=== PATIENT | female | born 1980 | race Caucasian/White ===

== ENCOUNTER → 2023-12-07 09:25 | Outpatient (REF) | payer BC, SELFPAY | LOC: RAD 09:25 | PROVIDERS: ATTENDING PHYSICIAN Physician Assistant; FAMILY PHYSICIAN Nurse Practitioner Family | DX: E04.9 Nontoxic goiter, unspecified (principal) | CPT/HCPCS: 76536 ==

== ENCOUNTER → 2024-01-14 06:27 | Day surgery (SDC) | payer OTHER, SELFPAY | LOC: GI 06:27 | PROVIDERS: ATTENDING PHYSICIAN Internal Medicine Gastroenterology | DX: R10.12 Left upper quadrant pain (principal); R19.7 Diarrhea, unspecified; K64.9 Unspecified hemorrhoids; K63.5 Polyp of colon; R13.10 Dysphagia, unspecified; K44.9 Diaphragmatic hernia without obstruction or gangrene; K31.7 Polyp of stomach and duodenum; K29.50 Unspecified chronic gastritis without bleeding | CPT/HCPCS: 45385; 45380; 43239; 88305; 88342 ==

== ENCOUNTER 2024-10-22 10:23 | Emergency (ER) | payer OTHER, SELFPAY ==
[2024-10-22 10:41] VITALS: BP 129/82
[2024-10-22 11:03] LABS: % Basophils 1.2 % (0-2); % Immature Granulocytes 0.5 % (0-0.5); % Lymphocytes 26.7 % (20.5-51.1); % Monocytes 8.2 % (1.7-9.3); % Neutrophils 60.4 % (42.2-75.2); Absolute Basophils 0.1 10^3/uL (0-0.2); Absolute Eosinophils 0.2 10^3/uL (0-0.7); Absolute Lymphocytes 1.5 10^3/uL (1.2-3.4); Absolute Monocytes 0.5 10^3/uL (0.1-0.6); Absolute Neutrophils 3.5 10^3/uL (1.4-6.5); Hematocrit 39.1 % (37.0-47.0); Hemoglobin 13.2 g/dL (12.0-16.0); Mean Corp Hgb Conc. 33.8 g/dL (33.0-37.0); Mean Corpuscular Hgb 27.4 pg (27.0-31.0); Mean Corpuscular Volume 81.1 fL (81.0-99.0); Mean Platelet Volume 10.9 fL (7.4-10.4); Nucleated Red Blood Cells % 0 %; Platelet Count 243 10^3/uL (130-400); Red Blood Cell Count 4.82 10^6/uL (4.20-5.40); Red Cell Dist. Width 12.9 % (11.5-14.5); White Blood Cell Count 5.8 10^3/uL (4.8-10.8)
[2024-10-22 11:18] LABS: ALT (SGPT) 28 U/L (0-35); AST (SGOT) 30 U/L (14-36); Albumin 4.5 g/dl (3.5-5.0); Alkaline Phosphatase 81 U/L (38-126); Blood Urea Nitrogen 12 mg/dl (7-17); Calcium 9.6 mg/dl (8.4-10.2); Carbon Dioxide 25 mmol/L (22-30); Chloride 104 mmol/L (98-107); Glucose 106 mg/dl (70-99); Potassium 3.9 mmol/L (3.5-5.1); Sodium 139 mmol/L (135-145); Total Bilirubin 0.3 mg/dl (0.2-1.3); Total Protein 7.7 g/dl (6.3-8.2); eGFR > 60.00
[2024-10-22 11:19] LABS: HCG, Serum Qualitative Screen Negative
[2024-10-22 11:53] VITALS: BP 106/70
[2024-10-22 12:00] VITALS: BP 110/73
--- NOTE | 2024-10-22 12:14 | ED.GENMED ---
History of Present Illness
General
Chief Complaint: Dizziness
Source: patient
Time Seen by Provider: 10/22/24 11:56
History of Present Illness
History of Present Illness:
This patient is a 44-year-old female who states that last night she noted palpitations associated with an elevated heart rate in the 130s. She thought it might be related to overstimulation and anxiety given that she was with lots of family last
night. It resolved in a few hours and she went to bed. When she woke up this morning she again noted palpitations associated with feeling 'off and dizzy. She says the dizziness was not spinning but she did describe it is like feeling 'motion
sick', 'not lightheaded', but rather dizzy in her head. She performed the Stella maneuver on herself and ever since then she has had intractable nonbloody vomiting. She describes feeling incredibly nauseous now. She still has a feeling of
dizziness and is worse when she moves her head to the side. She also has a moderate headache. She denies numbness, weakness, change in vision, change in speech, recent trauma.
Past History
Past History
ED Past Medical History: GERD (Gastritis), Psychiatric and Other (Hypothyroidism)
ED Past Surgical History: None
Social History
Tobacco: Non-smoker
Alcohol: None
Drug: None
Living: other (With partner)
Employment: Employed
Family History
Family History: CAD and Other (CAD, stroke)
Phy Exam
Physical Exam
Physical Exam:
GENERAL: Alert , appears very nauseous, vomit bag in front of her
EYE: pupils equal and reactive, no nystagmus noted, EOMI, no objective photophobia
NECK: Supple, no significant adenopathy.
ENT: o/p clr, mmm.
CARDIAC: Regular rate and rhythm .
LUNGS: Clear breath sounds bilaterally, no acute respiratory distress, no wheezes/rales/rhonchi
ABDOMEN: Soft, without focal tenderness, no r/g, no cvat
NEUROLOGICAL: Alert and oriented, no focal neuro deficits, [id number] normal, motor 5 out of 5, sensory intact, cranial nerves II through XII intact
SKIN: Warm and dry, skin intact.
MUSCULOSKELETAL: No edema, well perfused.
PSYCH: Normal and appropriate interaction.
Course
Orders/Labs/Results
Orders:
Orders
10/22/24 10:33
EKG [Electrocardiogram (*1)] Urgent
Reason for Study: Palpitations
10/22/24 10:34
EKG- Treatment ONCE
10/22/24 10:44
Test Result ONCE
10/22/24 10:53
Complete Blood Count/With Diff Urgent
Comprehensive Metabolic Panel Urgent
HCG, Serum Qualitative Screen Urgent
TSH Urgent
Comment: TSH ADDED ON BY FLOOR NOON 10-22-24
10/22/24 11:55
Add On- LAB Urgent
Tests Added?: TSH
10/22/24 12:18
Metoclopramide [Reglan] 10 mg IV NOW STA
10/22/24 13:32
CT Head W/o Iv Contrast Urgent
Comment:
Reason For Exam: DIZZY
Abnormal Lab Results
10/22/24
10:53
MPV 10.9 H fL
(7.4-10.4)
Glucose 106 H mg/dl
(70-99)
TSH 0.43 L uIU/ml
(0.47-4.68)
10/22/24 10:53
10/22/24 10:53
Vital Signs
Initial and Last Documented VS:
Initial Vital Signs
Temp Pulse Resp BP Pulse Ox
98 F 82 18 129/82 99
10/22/24 10:41 10/22/24 10:41 10/22/24 10:41 10/22/24 10:41 10/22/24 10:41
Last Documented Vital Signs
Temp Pulse Resp BP Pulse Ox
98 F 78 12 110/73 95
10/22/24 10:41 10/22/24 12:45 10/22/24 14:05 10/22/24 12:00 10/22/24 12:45
*Critical Care Note
Total Time (30-74mins, 75-104mins- exclusive of procedures): Not Applicable
Update Note
Update Note:
Patient presents to the Emergency Department with ___dizziness and nausea
Number and Complexity of Problems Addressed at the Encounter
� Chronic conditions affecting care:
� Acute Exacerbation and/or Progression of Chronic Illness:
� Differential Diagnosis includes: But not limited to vestibular neuritis, otolith, central vertigo, migraine, etc.
Amount and/or Complexity of Data to be Reviewed and Analyzed
� I performed an independent evaluation of and my interpretation is:
EKG: Read by me, normal sinus rate, normal rhythm, normal axis, no acute ischemia
CT:read by isabel abad
Xrays:
Laboratory Studies:generally unremarkable
Other:
� Review of other/old records reveals:
� Clinical information was obtained by an independent historian:
� Prescriptions/Medications Considered but not given:
� Further testing considered but not performed:
Risk of Complications and/or Morbidity or Mortality of Patient Management
� Social determinants of health affecting care:
� Discussion with other providers (PCP, Hospitalists, Consultants, etc):
� Escalation of care including admission/observation vs risk of discharge considered:323pm Repeat assessment, pt sitting upright, smiling, sxs fully resolved, walked to br without difficulty. Suspect peripheral vertigo as cause
of sxs, doubt dissection/cva, etc given lack of focal findings/severe neck or headache etc. She did have a recent URI, which may be c/w bestib neuritis. D/w pt import of f/u and reasons tor monica.
ED Attending Note
-
Portions of this chart may have been created with voice recognition software.� Occasional wrong word or��sound alike� substitutions may have occurred due to the inherent limitations of voice recognition software.
Discharge Plan
Departure
Patient Disposition: Home (Routine Discharge)
Date of Disposition: 10/22/24
Time of Disposition: 15:43
Patient with high blood pressure during this ER visit?: Yes
Condition: Good
Discharge Problem:
Vertigo
Instructions: Vertigo (a Type of Dizziness) (DC), BLOOD PRESSURE
Prescriptions:
New
meclizine [Antivert] 25 mg tablet,chewable
25 mg PO Q8HPRN PRN (Reason: nausea or vertigo) Qty: 11 0RF
No Action
methylprednisolone [Medrol (Yovani)] 4 MG tablets,dose pack
4 tab PO . DIRECT Qty: 1 0RF
diazepam [Valium] 5 MG tablet
2.5 mg PO TID PRN (Reason: Pain, spasm) Qty: 10 0RF
ondansetron [Zofran ODT] 8 MG tablet,disintegrating
8 mg PO TID PRN (Reason: nausea/vomiting) Qty: 20 0RF
oxycodone 5 MG tablet
5 mg PO Q4HPRN PRN (Reason: pain) Qty: 20 0RF
benzonatate 200 mg capsule
200 mg PO TID PRN (Reason: cough) Qty: 6 0RF
albuterol sulfate [ProAir HFA] 90 mcg/actuation HFA aerosol inhaler
2 inh inhalation Q4H PRN (Reason: shortness of breath or wheezing) Qty: 6.7 0RF
Rx Instructions:
2 puffs every 4-6 hours as needed
Referrals:
Brittany Garcia PA-C [Family Provider] - Follow up in 2-3 days
Activity Restrictions/Additional Instructions:
YOUR MEDICATION IS AT [facility], [address] IN [place]. IF YOU DEVELOP RECURRENT/PERSISTENT DIZZINESS, VOMITING, NAUSEA, ANY NUMBNESS, CHANGE IN VISION, CHEST PAIN, TROUBLE BREATHING, WEAKNESS, OR OTHER WORRISOME SIGNS, GO TO THE ER
IMMEDIATELY!
Interventions
Interventions:
*Risk Screen - Suicide Last Done: 10/22/24 12:57
*General Assessment Last Done: 10/22/24 12:57
*Neglect/Abuse Screening Last Done: 10/22/24 12:57
ED- Fall Risk Assessment Last Done: 10/22/24 12:57
*ED COVID-19 Vaccine History Last Done: 10/22/24 12:57
ED- Neurological Assessment Last Done: 10/22/24 12:57
ED- Cardiac Assessment Last Done: 10/22/24 12:57
ED Swallowing Screen Last Done: 10/22/24 12:59
Discharge Date and Time
Print Language: BURUNDIAN
[2024-10-22] MEDS: REGLAN 10 MG IV (12:30)
[2024-10-22 12:43] LABS: TSH 0.43 uIU/ml (0.47-4.68)
[2024-10-22 12:57] VITALS: BMI 21.5
== END 2024-10-22 15:47 | disposition home or self-care (01) ==
LOC: EMR 10:23
PROVIDERS: Emergency Medicine; EMERGENCY PHYSICIAN Emergency Medicine; FAMILY PHYSICIAN Physician Assistant Medical
DX: R42 Dizziness and giddiness (principal); R00.2 Palpitations; R11.2 Nausea with vomiting, unspecified; R51.9 Headache, unspecified; R03.0 Elevated blood-pressure reading, without diagnosis of hypertension; K21.9 Gastro-esophageal reflux disease without esophagitis; E03.9 Hypothyroidism, unspecified; Z88.5 Allergy status to narcotic agent
CPT/HCPCS: 99284; 96374; 70450; 80053; 84443; 84703; 85025; 93005

== ENCOUNTER 2025-09-08 18:18 | Day surgery (SDC) | payer OTHER, SELFPAY ==
[2025-09-08] VITALS (8 sets, daily range): BP systolic 105–147; BP diastolic 65–84; BMI 31.1; BMI 31.9
--- NOTE | 2025-09-08 12:28 | ED.GENMED ---
History of Present Illness
<Jenniffer Edmond MD, Resident - Last Filed: 09/08/25 17:20>
General
Chief Complaint: Abdominal Pain
Source: patient
Time Seen by Provider: 09/08/25 12:08
History of Present Illness
History of Present Illness:
45-year-old female past medical history of known gallstones, GERD, anxiety, hypothyroidism presents to the ER for right upper quadrant pain. She has known gallstones and has had multiple 'gallstone' attacks in the past however today, about 30
minutes after eating an egg, she noticed sudden onset, sharp, stabbing right upper quadrant pain that radiates into the right shoulder blade and chest. She had 4-5 episodes of clear vomiting and describes '10/07' pain. She had a cold last that she
was recovering from but otherwise denies any recent fever or chills. She denies any current runny nose, sore throat, cough, dysuria, hematuria, melana, hematochezia, SOB or heart palpitations. She denies any lightheadedness or blurry vision. She
does not drink alcohol. She does not know if she has hypercholesterolemia. She takes omeprazole regularly for GERD. She had an endoscopy 01/14/24 which revealed no gastric ulcers.
GI: Dr. Masters
Past History
<Jenniffer Edmond MD, Resident - Last Filed: 09/08/25 17:20>
Past History
ED Past Medical History: GERD (Gastritis), Psychiatric and Other (Hypothyroidism)
ED Past Surgical History: None
Social History
Tobacco: Non-smoker
Alcohol: None
Drug: None
Personal:
Living: other (With partner)
Employment: Employed
Family History
Family History: CAD and Other (CAD, stroke)
Review of Systems
<Jenniffer Edmond MD, Resident - Last Filed: 09/08/25 17:20>
Review of Systems
Allergies reviewed?: Yes
Constitutional: Reports no symptoms
EENT: Reports no symptoms
Respiratory: Reports no symptoms
Cardiac: Reports chest pain
ABD/GI: Reports abdominal pain, nausea and vomiting
: Reports no symptoms
Musculoskeletal: Reports no symptoms
Skin: Reports no symptoms
Neurological: Reports no symptoms
Endocrine: Reports no symptoms
Hematologic/Lymphatic: Reports no symptoms
Psychiatric: Reports no symptoms
Phy Exam
<Jenniffer Edmond MD, Resident - Last Filed: 09/08/25 17:20>
Physical Exam
Physical Exam:
General: Appears in pain however sitting up in bed and conversant
Head: Atraumatic
Eyes: PERRLA
Cardiac: Regular S1, S2, no murmur
Respiratory: Clear breath sounds bilaterally, no wheezes or rales
Abdomen: Mid epigastric and right upper quadrant tenderness with palpation
Neurological: non-focal
Extremities: No peripheral edema
Psych: Calm
Course
<Jenniffer Edmond MD, Resident - Last Filed: 09/08/25 17:20>
Orders/Labs/Results
Orders:
Orders
09/08/25 11:59
EKG [Electrocardiogram (*1)] Urgent
Reason for Study: Chest Pain
EKG- Treatment ONCE
09/08/25 12:25
US Abdomen Complete/Upper Urgent
Comment:
Reason For Exam: RUQ pain, known gallstones
09/08/25 12:42
Complete Blood Count/With Diff Urgent
Comprehensive Metabolic Panel Urgent
Lipase Urgent
09/08/25 13:35
Consult Surgery [SURGICAL CONSULT] Routine
Consulting Provider: Kishan Jefferson
Was physician already notified: Yes
09/08/25 14:48
Ketorolac [Toradol] 15 mg IV NOW STA
Abnormal Lab Results
09/08/25
12:42
MCHC 32.9 L g/dL
(33.0-37.0)
MPV 10.7 H fL
(7.4-10.4)
Glucose 116 H mg/dl
(70-99)
AST 149 H U/L
(14-36)
ALT 103 H U/L
(0-35)
09/08/25 12:42
09/08/25 12:42
Vital Signs
Initial and Last Documented VS:
Initial Vital Signs
Temp Pulse Resp BP Pulse Ox
98.1 F 88 16 147/84 100
09/08/25 12:04 09/08/25 12:04 09/08/25 12:04 09/08/25 12:04 09/08/25 12:04
Last Documented Vital Signs
Temp Pulse Resp BP Pulse Ox
98.1 F 76 15 111/73 99
09/08/25 12:04 09/08/25 16:01 09/08/25 16:01 09/08/25 16:01 09/08/25 16:01
<Leonard Forman MD - Last Filed: 09/08/25 15:45>
Orders/Labs/Results
Orders:
Orders
09/08/25 11:59
EKG [Electrocardiogram (*1)] Urgent
Reason for Study: Chest Pain
EKG- Treatment ONCE
09/08/25 12:25
US Abdomen Complete/Upper Urgent
Comment:
Reason For Exam: RUQ pain, known gallstones
09/08/25 12:42
Complete Blood Count/With Diff Urgent
Comprehensive Metabolic Panel Urgent
Lipase Urgent
09/08/25 13:35
Consult Surgery [SURGICAL CONSULT] Routine
Consulting Provider: Kishan Jefferson
Was physician already notified: Yes
09/08/25 14:48
Ketorolac [Toradol] 15 mg IV NOW STA
Abnormal Lab Results
09/08/25
12:42
MCHC 32.9 L g/dL
(33.0-37.0)
MPV 10.7 H fL
(7.4-10.4)
Glucose 116 H mg/dl
(70-99)
AST 149 H U/L
(14-36)
ALT 103 H U/L
(0-35)
09/08/25 12:42
09/08/25 12:42
Vital Signs
Initial and Last Documented VS:
Initial Vital Signs
Temp Pulse Resp BP Pulse Ox
98.1 F 88 16 147/84 100
09/08/25 12:04 09/08/25 12:04 09/08/25 12:04 09/08/25 12:04 09/08/25 12:04
Last Documented Vital Signs
Temp Pulse Resp BP Pulse Ox
98.1 F 76 15 111/73 99
09/08/25 12:04 09/08/25 16:01 09/08/25 16:01 09/08/25 16:01 09/08/25 16:01
<Jenniffer Edmond MD, Resident - Last Filed: 09/08/25 17:20>
MDM/Problems Addressed
Differential Diagnosis Includes:
Biliary colic, ascending cholangitis, gallstone pancreatitis, pancreatitis, PUD, gastritis, kidney stone,
MDM/Problems Addressed:
Assessment: 45-year-old female with known gallstones presents to the ER with sudden onset right upper quadrant pain suspicious for gallstone etiology.
Will get CBC, CMP, lipase, EKG, abdominal ultrasound to evaluate for biliary colic, pancreatitis, ascending cholangitis. EKG is nonischemic and low clinical suspicion for OR given age.
13:07
CMP revealed AST 149, ALT 103, lipase 72. CBC unremarkable. US revealed multiple gallstone but no active inflammation. Patient is still in pain so general surgery was consulted. Ketorolac given.
17:18
General surgery evaluated patient and agreed to admission to surgical team for likely cholecystectomy tomorrow.
Chronic conditions affecting care: Other (Gallstones, GERD)
<Jenniffer Edmond MD, Resident - Last Filed: 09/08/25 17:20>
*Pulse Oximetry
SaO2: 97
Oxygen Mode of Delivery: Room air
Patient hypoxic: no
*Critical Care Note
Total Time (30-74mins, 75-104mins- exclusive of procedures): Not Applicable
Data Reviewed
Review of Other/Old Records Reveals: Labs (TSH 0.43 10/22/24 ) and Radiology Studies (Ab US 06/28/15 Cholelithiasis with borderline thickening of gallbladder wall which measures 3.5 mm suggesting the possibility of cholecystitis.)
Source: patient and records
ED Attending Note
<Jenniffer Edmond MD, Resident - Last Filed: 09/08/25 17:20>
-
Portions of this chart may have been created with voice recognition software.� Occasional wrong word or��sound alike� substitutions may have occurred due to the inherent limitations of voice recognition software.
<Leonard Forman MD - Last Filed: 09/08/25 15:45>
ED Attending Note
Patient seen and examined by attending physician: Yes
I performed a history and physical exam of patient and discussed management with resident, I reviewed resident's note and agree with documented findings and plan of care.: Yes
ED Attending Note:
I have seen and evaluated the patient with a [id number] encounter. I have spoken to the [resident] and involved in the medical history, the physical exam, medical decision making.
Evaluation and management service: agree unless noted differently below.
Results interpretation: agree unless noted differently below.
45-year-old woman with history of gallstones presenting to the emergency department abdominal pain. Patient has history of gallstone attacks similar to what happened today. This morning patient woke up at breakfast developed right upper quadrant
abdominal pain that radiated to her epigastric. Did not go to her back. No numbness tingling. She did have nausea as well as 1 episode of vomiting. No diarrhea. She does state the pain was burning. She did take antiacids with some help. She
did have a endoscopy last year which did not show any ulcers. Currently patient does state that the pain has slightly improved. During my evaluation patient is extremely uncomfortable holding her abdomen. Her abdomen is tender especially in
epigastric and right upper quadrant region. Lungs are clear to auscultation. Heart is regular rate and rhythm with 2+ radial pulses. Concern for biliary colic versus acute cholecystitis versus pancreatitis versus PUD. Considered atypical ACS
though less likely given that patient's symptoms began immediately after eating and similar to prior attacks. Will check blood work EKG and ultrasound. Will pain control.
Blood work notable for mild elevation in AST ALT. Ultrasound does show significant amount of gallstones. Given patient's persistent pain we did discuss with surgery who will evaluate patient. Patient signed out to oncoming attending pending
surgery evaluation.
Discharge Plan
Departure
Patient Disposition: Admit
Date of Disposition: 09/08/25
Time of Disposition: 17:14
Presentation/result/management discussed w/ accepting /DO: Dr. Kishan Jefferson
Discharge Problem:
Biliary colic, Gallstone
Prescriptions:
No Action
methylprednisolone [Medrol (Yovani)] 4 MG tablets,dose pack
4 tab PO . DIRECT Qty: 1 0RF
diazepam [Valium] 5 MG tablet
2.5 mg PO TID PRN (Reason: Pain, spasm) Qty: 10 0RF
ondansetron [Zofran ODT] 8 MG tablet,disintegrating
8 mg PO TID PRN (Reason: nausea/vomiting) Qty: 20 0RF
oxycodone 5 MG tablet
5 mg PO Q4HPRN PRN (Reason: pain) Qty: 20 0RF
benzonatate 200 mg capsule
200 mg PO TID PRN (Reason: cough) Qty: 6 0RF
albuterol sulfate [ProAir HFA] 90 mcg/actuation HFA aerosol inhaler
2 inh inhalation Q4H PRN (Reason: shortness of breath or wheezing) Qty: 6.7 0RF
Rx Instructions:
2 puffs every 4-6 hours as needed
meclizine [Antivert] 25 mg tablet,chewable
25 mg PO Q8HPRN PRN (Reason: nausea or vertigo) Qty: 11 0RF
Referrals:
Brittany Garcia PA-C [Family Provider, Family Practice]
Interventions
Interventions:
*Risk Screen - Suicide Last Done: 09/08/25 12:04
*General Assessment Last Done: 09/08/25 12:21
*Neglect/Abuse Screening Last Done: 09/08/25 12:04
*ED- Fall Risk Assessment Last Done: 09/08/25 12:21
*ED COVID-19 Vaccine History Last Done: 09/08/25 12:21
*ED Influenza Vaccine History Last Done: 09/08/25 12:21
YC-Vqkyxr-Exbtpitmuq Assessment Last Done: 09/08/25 12:21
Discharge Date and Time
Print Language: [place]IZ[place]
[2025-09-08 12:54] LABS: Hematocrit 41.6 % (37.0-47.0); Hemoglobin 13.7 g/dL (12.0-16.0); Mean Corp Hgb Conc. 32.9 g/dL (33.0-37.0); Mean Corpuscular Volume 83.2 fL (81.0-99.0); Nucleated Red Blood Cells % 0 %; Platelet Count 227 10^3/uL (130-400); Red Cell Dist. Width 13.2 % (11.5-14.5)
[2025-09-08 13:04] LABS: ALT (SGPT) 103 U/L (0-35); AST (SGOT) 149 U/L (14-36); Albumin 4.7 g/dl (3.5-5.0); Alkaline Phosphatase 88 U/L (38-126); Blood Urea Nitrogen 11 mg/dl (7-17); Calcium 9.5 mg/dl (8.4-10.2); Carbon Dioxide 25 mmol/L (22-30); Chloride 103 mmol/L (98-107); Estimated Creatinine Clearance 97 ml/min; Glucose 116 mg/dl (70-99); Lipase 72 U/L (23-300); Potassium 3.8 mmol/L (3.5-5.1); Sodium 138 mmol/L (135-145); Total Protein 8.1 g/dl (6.3-8.2); eGFR > 60.00
[2025-09-08] MEDS: TORADOL 15 MG IV (15:06)
--- NOTE | 2025-09-08 17:15 | HPS.HSE ---
Family Physician
-
Family Physician: Brittany Garcia
Chief Complaint
-
Abdominal pain
History of Present Illness
Patient is a 45 yo F with a PMH of anxiety/depression, asthma, and hypothyroidism who presents with acute on chronic upper abdominal pain. Ms. Cisneros states that she has had attacks of RUQ abdominal pain dating back almost 10 years. She is on
herbalist and attempted to treat her symptoms with diet and supplements. However recently she has had worsening attacks of abdominal discomfort as well as worsening reflux. Associated nausea and vomiting. Current attack began yesterday and has
persisted. No fevers or chills. She does report paler stools, but denies any tea colored urine or jaundice. Strong family history of multiple family members requiring cholecystectomy.
Medical History
Past Medical History
Past Medical History: Reports Hypothyroidism, Psychiatric (Anxiety/depression) and Other (Obesity)
Past Surgical History: Reports None
Social History
Tobacco: Non-smoker
Alcohol: None
Drug: None
Personal:
Family History
Family History: Other (Multiple family members post-cholecystectomy)
Allergies / Home Medications
Allergies reflects when Allergies were last updated in [facility].
Home Medications with original date entered in [facility]
Allergy/Medication List:
KNDA
Review of Systems
-
A 12 point ROS was completed and negative except as noted: Yes
Physical Exam
Vital Signs
Vital Signs
Temp Pulse Resp BP Pulse Ox
98.1 F 76 15 111/73 99
09/08/25 12:04 09/08/25 16:01 09/08/25 16:01 09/08/25 16:01 09/08/25 16:01
Physical Exam
General: Well Developed, Well Nourished and No Apparent Distress
HEENT: NormoCephalic and Anicteric
Respiratory: Non Labored Respirations
Cardiac: Regular Rhythm
GI: Soft, Non Distended, Tender (Epigastrium and RUQ) and Other (Non-peritoneal)
Musculoskeletal: No Edema
Skin: Warm and Dry
Neuro: Nonfocal/grossly intact
Laboratory Results
-
09/08/25 12:42
09/08/25 12:42
Laboratory Results
Total Bilirubin 0.5 mg/dl (0.2-1.3) 09/08/25 12:42
AST 149 U/L (14-36) H 09/08/25 12:42
ALT 103 U/L (0-35) H 09/08/25 12:42
Alkaline Phosphatase 88 U/L (38-126) 09/08/25 12:42
Troponin I Cancelled 09/08/25 12:27
Lipase 72 U/L (23-300) 09/08/25 12:42
Data Reviewed
-
Ultrasound: Image Personally Visualized and interpreted and Report Reviewed by me
Lab Data: Labs Reviewed by me
Old Records: Reviewed
Impression/Plan
-
IMPRESSION:
Patient is a 45 yo F p/w acute on chronic cholecystitis
The natural history and pathophysiology of biliary and stone disease was reviewed. Workup thus far including ultrasound and labs were reviewed. Options for management including a trial of medical management and low-fat diet with outpatient
cholecystectomy versus admission and cholecystectomy during this presentation were considered and discussed. The pros and cons of both approaches was discussed. Given her persistent attacks and pain as well as elevated LFTs would recommend
admission and cholecystectomy during this presentation. Ms. Cisneros agrees and wishes to proceed with cholecystectomy. Timing TBD.
PLAN:
-- Laparoscopic cholecystectomy with IOC, added on to OR schedule tomorrow
-- Clears, NPO PM
-- Pain control: Tylenol, Toradol, Oxycodone
-- Abx: Zosyn
-- IVF
-- Home meds
-- DVT: Lovenox
-- GI: Home PPI
[2025-09-08] MEDS: NORMOSOL-R/PLASMALYTE-A 1000 IV (19:59)
[2025-09-08] MEDS: TYLENOL 650 MG PO (20:00)
[2025-09-08] MEDS: NON-FORMULARY ITEM 1 UNIT RIGHT EYE (21:56)
[2025-09-09] VITALS (16 sets, daily range): BP systolic 111–131; BP diastolic 71–85
[2025-09-09] MEDS: TYLENOL PO ×7 (00:40→23:19)
[2025-09-09] MEDS: NORMOSOL-R/PLASMALYTE-A 1000 IV ×2 (05:38→18:32)
[2025-09-09] MEDS: NON-FORMULARY ITEM 125 UNIT PO (05:39)
[2025-09-09 08:38] LABS: Hematocrit 38.7 % (37.0-47.0); Hemoglobin 12.7 g/dL (12.0-16.0); Mean Corp Hgb Conc. 32.8 g/dL (33.0-37.0); Mean Corpuscular Volume 86.8 fL (81.0-99.0); Platelet Count 213 10^3/uL (130-400); Red Cell Dist. Width 13.3 % (11.5-14.5)
--- NOTE | 2025-09-09 08:52 | CM ---
CM reviewed medical records. Cm met with patient in room. Patient confirmed demographics. Patient lives independently with significant other Kam. 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
currently on service. Patient has no DME. Patient is active with her PCP. Patient has medication coverage.
PLAN: Anticipate home no needs.
[2025-09-09] MEDS: NON-FORMULARY ITEM 1 UNIT RIGHT EYE ×3 (08:54→20:13)
[2025-09-09] MEDS: PROTONIX IV 40 MG IV (08:54)
[2025-09-09 09:20] LABS: ALT (SGPT) 95 U/L (0-35); AST (SGOT) 54 U/L (14-36); Albumin 3.9 g/dl (3.5-5.0); Alkaline Phosphatase 85 U/L (38-126); Blood Urea Nitrogen 7 mg/dl (7-17); Calcium 9.0 mg/dl (8.4-10.2); Carbon Dioxide 28 mmol/L (22-30); Chloride 105 mmol/L (98-107); Estimated Creatinine Clearance 96 ml/min; Glucose 84 mg/dl (70-99); Potassium 4.3 mmol/L (3.5-5.1); Sodium 139 mmol/L (135-145); Total Protein 6.8 g/dl (6.3-8.2); eGFR > 60.00
--- NOTE | 2025-09-09 11:11 | W.PN.UPDATE ---
Update Note
Progress Note Update
Pt seen and examined at bedside. No changes. OCTOR for lap yamileth with cholang.
[2025-09-09] MEDS: ATIVAN 1 MG IV (12:40)
[2025-09-09] MEDS: NSS (PRESERVATIVE FREE) 0.5 ML IV (12:40)
[2025-09-09] MEDS: NON-FORMULARY ITEM RIGHT EYE (13:00)
--- NOTE | 2025-09-09 15:50 | W.IMMPOSTOP ---
Surgical Immed Post Op Note
-
Primary Surgeon: Sj
Assisting: Fannie HARRIS
Pre-op Diagnosis: Acute calculous cholecystitis
Post-op Diagnosis: Same
Procedure Performed: Robotic cholecystectomy with intraoperative near infrared imaging of major extrahepatic bile ducts and intraoperative cholangiogram
Anesthesia Type: GETA
Specimen / Cultures: Gallbladder
Estimated Blood Loss: 30cc
Complications: Serosal cautery injury to stomach, repaired with lembert sutures 2-0 silk x3
Operative Findings: Severely inflamed gallbladder totaly encased in thick fat; stomach densely adherent to gallbladder wall, superficial serosal injury from cautery to stomach during dissection, repaired; Intraoperative cholangiogram unsuccessful;
catheter did not thread well and images were non-diagnostic, very diminutive cystic duct, with repeated attempts to thread the catheter it passed through the posterior wall of the cystic duct and at that point further attempts at cholangiogram were
aborted; anatomy identified with ICG, common duct protected; 4cm gallstone with challenging extraction, extraction site closed in open fashion with 0 maxon
--- NOTE | 2025-09-09 15:55 | OR.RPT ---
Operative Report
Operative Report
Primary Surgeon: Sj
Assisting: Fannie HARRIS
Pre-op Diagnosis: Acute calculous cholecystitis
Post-op Diagnosis: Same
Procedure Performed: Robotic cholecystectomy with intraoperative near infrared imaging of major extrahepatic bile ducts and intraoperative cholangiogram
Anesthesia Type: GETA
Specimen / Cultures: Gallbladder
Estimated Blood Loss: 30cc
Complications: Serosal cautery injury to stomach, repaired with lembert sutures 2-0 silk x3
Operative Findings: Severely inflamed gallbladder totaly encased in thick fat; stomach densely adherent to gallbladder wall, superficial serosal injury from cautery to stomach during dissection, repaired; Intraoperative cholangiogram unsuccessful;
catheter did not thread well and images were non-diagnostic, very diminutive cystic duct, with repeated attempts to thread the catheter it passed through the posterior wall of the cystic duct and at that point further attempts at cholangiogram were
aborted; anatomy identified with ICG, common duct protected; 4cm gallstone with challenging extraction, extraction site closed in open fashion with 0 maxon
DOS: 09/09/25
Indications: This 45F developed right upper quadrant/epigastric pain and on workup was found to have cholelithiasis, with elevated liver enzymes and normal sized ducts. Laparoscopic cholecystectomy with robotic assist and with cholangiogram was
elected.
Description of procedure: The patient was placed on the operating table in the supine position. General anesthesia was induced. A time-out was completed verifying correct patient, procedure, site, positioning, and special equipment prior to
beginning this procedure. An orogastric tube was placed. The abdomen was prepped and draped in the usual sterile fashion. A stab incision was made in left upper quadrant and the Veress needle was inserted. Proper position was confirmed by aspiration
and saline meniscus test. The abdomen was insufflated with carbon dioxide to a pressure of 12 mmHg. The patient tolerated insufflation well.
An 8mm optical trocar was then inserted in the left upper quadrant. The laparoscope was inserted and the abdomen inspected. No injuries from initial trocar placement or Veress needle insertion were noted. An umbilical/incisional hernia was noted
with bowel and omental contents. This was avoided. Additional 8mm trocars were then inserted in the following locations: above the umbilicus, right mid clavicular line at the level of the umbilicus and 6cm lateral to this on the right. The abdomen
was inspected and no abnormalities were found. The table was placed in the reverse Trendelenburg position with the right side up. The dome of the gallbladder was grasped with an atraumatic grasper and retracted over the dome of the liver. Dense
adhesions to the fundus from the omentum were taken down with blunt dissection and cautery. The gallbladder was encased in thick inflammatory fat and the stomach was densely adherent to the infundibulum. The stomach was carefully teased away from
the gallbladder with blunt dissection and judicious cautery. A serosal injury to the stomach was noted at this time and repaired with 2-0 silk suture tori. The infundibulum was then grasped with an atraumatic grasper and retracted toward the
right lower quadrant. This maneuver exposed Calot�s triangle. The cystic duct and cystic artery were dissected out until the only two structures entering the gallbladder were these two structures. The cystic duct and common duct were visualized
with ICG. The common duct was was protected.
A alcides was made in the cystic duct and a cholangiogram catheter was threaded through the abdominal wall and into the duct and secured with 2-0 silk. The catheter did not thread well and required multiple attempts. The cystic was milked back but no
stones flowed out. A cholangiogram was obtained but images were nondiagnostic. Further attempts to thread the catheter were made, ultimatly the catheter was noted to be protruding from the posterior wall of the cystic duct. Further attempts were
then aborted. The catheter was withdrawn.
The cystic artery was controlled with bipolar and divided. The cystic duct was doubly clipped taking care to place the clips below the area where the catheter penetrated the posterior wall. The cystic duct divided. The stump was examined and noted
to be very small. The gallbladder was dissected free from the liver bed. Hemostasis was assured and the gallbladder and contained stones were removed using an endoscopic retrieval bag placed through the umbilical port. The port incision was enlarged
to accommodate the very large gallstone contained within the gallbladder. The gallbladder was passed off the table as a specimen. There was no evidence of bleeding from the gallbladder fossa or cystic artery or leakage of the bile from the cystic
duct stump. The umbilical trocar site was closed at the fascial level in open with 2-0 maxon. Secondary trocars were removed under direct vision and noted to be hemostatic. The laparoscope was withdrawn and the umbilical trocar removed. The abdomen
was allowed to collapse. The skin was closed with subcuticular sutures of 4-0 monocryl and topical skin adhesive. The orogastric tube was removed.
The patient tolerated the procedure well and was taken to the postanesthesia care unit in stable condition.
The assistance of Fannie HARRIS was required due to the complexity of the procedure. During the procedure she assisted with retraction, resection, and closure of the wound.
[2025-09-09] MEDS: LOVENOX SC (18:18)
--- NOTE | 2025-09-09 19:29 | PTCARENOTE ---
Pt received s/p robotic cholecystectomy. Pt AAox3, drowsy but arousable to verbal stimuli. BP 122/71, HR 91, SpO2 98% on 2L. VSS. Lap sites CDI. IVF infusing per order. Pt resting in bed, call freitas in reach. Family member at bedside.
[2025-09-09] MEDS: ULTRAM PO (20:20)
[2025-09-09] MEDS: ZOFRAN 4 MG IV (20:25)
[2025-09-09] MEDS: ULTRAM 50 MG PO (23:19)
[2025-09-09] MEDS: COMPAZINE 5 MG IV (23:30)
[2025-09-10] MEDS: TYLENOL PO ×4 (00:28→09:18)
[2025-09-10] MEDS: NORMOSOL-R/PLASMALYTE-A 1000 IV (03:16)
[2025-09-10 03:30] VITALS: BP 118/75
[2025-09-10] MEDS: NON-FORMULARY ITEM 125 UNIT PO (05:23)
[2025-09-10] MEDS: ULTRAM 50 MG PO (06:20)
[2025-09-10] MEDS: ZOFRAN 4 MG IV ×2 (06:25→18:43)
[2025-09-10 06:46] LABS: Hematocrit 37.1 % (37.0-47.0); Hemoglobin 12.2 g/dL (12.0-16.0); Mean Corp Hgb Conc. 32.9 g/dL (33.0-37.0); Mean Corpuscular Volume 86.9 fL (81.0-99.0); Platelet Count 242 10^3/uL (130-400); Red Cell Dist. Width 13.2 % (11.5-14.5)
[2025-09-10 07:00] VITALS: BP 119/76
[2025-09-10 07:05] LABS: ALT (SGPT) 86 U/L (0-35); AST (SGOT) 53 U/L (14-36); Albumin 3.9 g/dl (3.5-5.0); Alkaline Phosphatase 84 U/L (38-126); Blood Urea Nitrogen 7 mg/dl (7-17); Calcium 8.4 mg/dl (8.4-10.2); Carbon Dioxide 25 mmol/L (22-30); Chloride 106 mmol/L (98-107); Estimated Creatinine Clearance 112 ml/min; Glucose 110 mg/dl (70-99); Potassium 4.3 mmol/L (3.5-5.1); Sodium 138 mmol/L (135-145); Total Protein 6.7 g/dl (6.3-8.2); eGFR > 60.00
--- NOTE | 2025-09-10 08:43 | W.PN.GS2 ---
Today's Communication / Plan
-
as above
Assessment / Plan
-
45F POD1 s/p rCCY with unsuccessful cholangiogram
AFVSS
labs improved
Plan:
zofran/compazine alternating
ambulate
diet as ayla
prn pain mgmt
dvt ppx
anticipate at least 24 hrs from time of anesthesia before PONV improves
Subjective Data
-
Date of Service: September 10, 2025
AF, intermittent mild tachycardia, pain controlled, issues with PONV
Objective Data
-
Intake and Output
09/09/25 09/10/25 09/11/25
06:59 06:59 06:59
Intake Total 240 / 240 2510 / 2510
Output Total 1300 / 1300
Balance 240 / 240 1210 / 1210
Intake:
Oral fluids 240 / 240 960 / 960
IV fluids (Total) 1550 / 1550
Normosol 350 / 350
Output:
Urine, Voided 1300 / 1300
Other:
Number of approximated MODERATE 3
amounts of urine
Vital Signs
Temp Pulse Resp BP Pulse Ox
98.4 F 88 16 119/76 100
09/10/25 07:00 09/10/25 07:00 09/10/25 07:00 09/10/25 07:00 09/10/25 07:00
Lab Results
09/10/25 05:58
09/10/25 05:58
Calcium 8.4 mg/dl (8.4-10.2) 09/10/25 05:58
Total Bilirubin 0.3 mg/dl (0.2-1.3) 09/10/25 05:58
Direct Bilirubin 0.0 mg/dl (0.0-0.4) 09/10/25 05:58
AST 53 U/L (14-36) H 09/10/25 05:58
ALT 86 U/L (0-35) H 09/10/25 05:58
Alkaline Phosphatase 84 U/L (38-126) 09/10/25 05:58
Total Protein 6.7 g/dl (6.3-8.2) 09/10/25 05:58
Albumin 3.9 g/dl (3.5-5.0) 09/10/25 05:58
Physical Exam
-
Gen: NAD
Abd: soft, approp ttp, incisions cdi with glue, expected ecchymosis
Patient has a perston catheter: No
Patient has a central line: No
[2025-09-10] MEDS: NON-FORMULARY ITEM RIGHT EYE (09:16)
[2025-09-10] MEDS: PROTONIX IV 40 MG IV (09:17)
[2025-09-10] MEDS: NON-FORMULARY ITEM 1 UNIT RIGHT EYE ×4 (09:22→20:14)
[2025-09-10 11:00] VITALS: BP 113/71
[2025-09-10] MEDS: TYLENOL 650 MG PO ×3 (12:47→20:03)
[2025-09-10 15:00] VITALS: BP 117/83
[2025-09-10] MEDS: LOVENOX 40 MG SC (16:50)
[2025-09-10] MEDS: CLARITIN 10 MG PO (20:42)
[2025-09-10 20:51] VITALS: BP 114/71; BP 123/75; BP 125/73; PULSE 71; PULSE 74
[2025-09-10 23:00] VITALS: BP 113/70
[2025-09-11] MEDS: TYLENOL PO
[2025-09-11] MEDS: TYLENOL 650 MG PO ×3 (03:14→12:01)
[2025-09-11] MEDS: NON-FORMULARY ITEM 125 UNIT PO (05:23)
[2025-09-11 07:50] VITALS: BP 114/76
[2025-09-11] MEDS: NON-FORMULARY ITEM 1 UNIT RIGHT EYE (08:49)
[2025-09-11] MEDS: CLARITIN 10 MG PO (08:49)
--- NOTE | 2025-09-11 09:22 | W.PN.GS2 ---
Today's Communication / Plan
-
DC
Assessment / Plan
-
45F POD2 s/p rCCY with unsuccessful cholangiogram
AFVSS
labs improved
N/V improved
Plan:
OK for DC home
Subjective Data
-
Date of Service: September 11, 2025
N/V improved, ayla PO, ambulating, pain controlled
Objective Data
-
Intake and Output
09/10/25 09/11/25 09/12/25
06:59 06:59 06:59
Intake Total 2510 / 2510 1080 / 1080
Output Total 1300 / 1300
Balance 1210 / 1210 1080 / 1080
Intake:
Oral fluids 960 / 960 480 / 480
IV fluids (Total) 1550 / 1550 600 / 600
Normosol 350 / 350
Output:
Urine, Voided 1300 / 1300
Other:
Number of approximated LARGE 1
amounts of urine
Vital Signs
Temp Pulse Resp BP Pulse Ox
98.9 F 73 16 114/76 99
09/11/25 07:50 09/11/25 07:50 09/11/25 07:50 09/11/25 07:50 09/11/25 07:50
Lab Results
09/10/25 05:58
09/10/25 05:58
Calcium 8.4 mg/dl (8.4-10.2) 09/10/25 05:58
Total Bilirubin 0.3 mg/dl (0.2-1.3) 09/10/25 05:58
Direct Bilirubin 0.0 mg/dl (0.0-0.4) 09/10/25 05:58
AST 53 U/L (14-36) H 09/10/25 05:58
ALT 86 U/L (0-35) H 09/10/25 05:58
Alkaline Phosphatase 84 U/L (38-126) 09/10/25 05:58
Total Protein 6.7 g/dl (6.3-8.2) 09/10/25 05:58
Albumin 3.9 g/dl (3.5-5.0) 09/10/25 05:58
Physical Exam
-
Gen: NAd
Abd: soft, approp ttp, incisions cdi with expectd ecchymosis
Patient has a preston catheter: No
Patient has a central line: No
--- NOTE | 2025-09-11 09:22 | W.DS.TRANS ---
Addendum entered and electronically signed by SAROJ Vela 09/11/25 10:51:
dictated #[id number]
Original Note:
DC Summary - Safety Instructor
-
Discharge Instructions:
Instructions:
Stand-Alone Forms:
Changes to Home Medications: No
Discharge Medications:
DC Medications w/original date entered in [employer]
cholecalciferol (vitamin D3) 25 mcg (1,000 unit) tablet (Vitamin D3) 25 mcg PO DAILY Supplement 09/08/25
famotidine 20 mg tablet (Pepcid) 20 mg PO DAILYPRN PRN GERD 09/08/25
fluticasone propionate 50 mcg/actuation nasal spray,suspension 1 spray intranasal BIDPRN PRN ALLERGIES 09/08/25
levothyroxine 125 mcg tablet (Synthroid) 125 mcg PO MOTUWETHFRSA Thyroid 09/08/25
levothyroxine 75 mcg tablet (Synthroid) 75 mcg PO TYLER Thyroid 09/08/25
magnesium oxide 250 mg PO DAILY Supplement 09/08/25
neomycin 3.5 mg/g-polymyxin B 10,000 unit/g-dexameth 0.1 % eye oint 1 applic RIGHT EYE QID Infection 09/08/25
omeprazole 40 mg capsule,delayed release 40 mg PO DAILYPRN PRN GERD 09/08/25
therapeutic multivitamin 1 tab PO DAILY Supplement 09/08/25
Home Medication Changes
Pending Results: No
[2025-09-11] MEDS: PROTONIX IV IV (09:39)
[2025-09-11] MEDS: PROTONIX 40 MG PO (09:51)
--- NOTE | 2025-09-11 10:15 | CM ---
Chart reviewed. POD2 s/p rCCY with unsuccessful cholangiogram
Patient will d/c home today
No CM needs at this time
Plan: Home, no needs
[2025-09-11 11:32] VITALS: BP 121/76
== END 2025-09-11 12:56 | disposition home or self-care (01) ==
LOC: SDS 18:18
PROVIDERS: Surgery; ATTENDING PHYSICIAN Surgery; EMERGENCY PHYSICIAN Student in an Organized Health Care Education/Training Program; FAMILY PHYSICIAN Physician Assistant Medical
DX: K80.10 Calculus of gallbladder with chronic cholecystitis without obstruction (principal); K91.71 Accidental puncture and laceration of a digestive system organ or structure during a digestive system procedure; R10.13 Epigastric pain
CPT/HCPCS: 47563; 74300; 76000; 76700; 80053; 82248; 83690; 85025; 85027; 88304; 93005; 96374; 99285; A4300

== ENCOUNTER → 2025-09-29 15:36 | Outpatient (REF) | payer OTHER, SELFPAY ==
[2025-09-29 17:06] LABS: Hematocrit 41.4 % (37.0-47.0); Hemoglobin 13.3 g/dL (12.0-16.0); Mean Corp Hgb Conc. 32.1 g/dL (33.0-37.0); Mean Corpuscular Volume 85.2 fL (81.0-99.0); Nucleated Red Blood Cells % 0 %; Platelet Count 304 10^3/uL (130-400); Red Cell Dist. Width 13.7 % (11.5-14.5)
[2025-09-29 17:28] LABS: ALT (SGPT) 25 U/L (0-35); AST (SGOT) 24 U/L (14-36); Albumin 4.8 g/dl (3.5-5.0); Alkaline Phosphatase 74 U/L (38-126); Blood Urea Nitrogen 13 mg/dl (7-17); Calcium 9.3 mg/dl (8.4-10.2); Carbon Dioxide 29 mmol/L (22-30); Chloride 101 mmol/L (98-107); Glucose 85 mg/dl (70-99); Potassium 4.0 mmol/L (3.5-5.1); Sodium 137 mmol/L (135-145); Total Protein 8.2 g/dl (6.3-8.2); eGFR > 60.00
== END ==
LOC: REG 15:36
PROVIDERS: ATTENDING PHYSICIAN Surgery; FAMILY PHYSICIAN Physician Assistant Medical
DX: Z48.89 Encounter for other specified surgical aftercare (principal)
CPT/HCPCS: 36415; 80053; 85025